=== PATIENT | female | born 1965 | race Hispanic/Latino ===

== ENCOUNTER 2017-08-31 13:19 | Outpatient (CLI) | payer OTHER ==
[2017-08-31 14:26] LABS: Hematocrit 39.7 % (36.0-47.0); Mean Platelet Volume 6.4 fL (7.4-10.4); Red Blood Cell (RBC) Count 4.15 mill/uL (4.20-5.40); White Blood Cell (WBC) Count 5.1 thou/uL (4.8-10.8)
[2017-08-31 14:46] LABS: Anion Gap 10 mmol/L (10-20); BUN (Urea Nitrogen) 11 mg/dL (9.8-20.1); Calc. Creatinine Clearance 0 mL/min (70-130); Calcium 9.2 mg/dL (7.8-10.44); Carbon Dioxide 29 mmol/L (22-29); Chloride 106 mmol/L (98-107); Estimated GFR-MDRD 86
== END 2017-08-31 13:20 | disposition home or self-care (01) ==
LOC: LABBT 13:19
PROVIDERS: ATTEND Orthopaedic Surgery
DX: Z01.812 Encounter for preprocedural laboratory examination (principal); S83.232A Complex tear of medial meniscus, current injury, left knee, initial encounter
CPT/HCPCS: 80048; 85027

== ENCOUNTER 2017-09-07 09:28 | Day surgery (SDC) | payer OTHER ==
[2017-08-31 13:23] VITALS: BMI 33.5
[2017-09-07] MEDS ORDERED: Fentanyl 250 MCG/5 ML VIAL ONE (09:54)
[2017-09-07] MEDS ORDERED: Bupivacaine/Epinephrine 0.25% 30 ML VIAL ONE (10:06)
[2017-09-07] MEDS ORDERED: Midazolam HCl 2 mg/2 ml Vial ONE (10:16)
[2017-09-07] MEDS ORDERED: CEFAZOLIN/Water 2 GM/20 ML SYRINGE ONE (10:16)
[2017-09-07] MEDS ORDERED: Fentanyl 100 MCG/2 ML VIAL ONE (11:51)
[2017-09-07] MEDS ORDERED: Morphine 4 MG/ML VIAL ONE (12:42)
[2017-09-07] MEDS ORDERED: Labetalol HCl 100 MG/20 ML VIAL ONE (12:53)
--- NOTE | 2017-09-07 13:11 | OP ---
DATE OF OPERATION: 09/07/2017 PREOPERATIVE DIAGNOSES: 1. Complex tear in the posterior horn of the medial meniscus. 2. Arthritis patellofemoral joint, left knee. POSTOPERATIVE DIAGNOSES: 1. Complex tear in the posterior horn of the medial meniscus. 2. Arthritis, patellofemoral joint, left knee. PROCEDURE: Arthroscopy of the left knee with partial medial meniscectomy, lateral retinacular releas e and shaving of the patellofemoral joint. SURGEON: Pavel Min M.D. ANESTHESIA: General. TECHNIQUE: The patient was given preoperative IV antibiotics, taken to the operating room, placed in the supine position. Satisfactory general anesthesia was performed. Left lower extremity was place d in a leg cummins and sterilely prepped and draped in the usual fashion. After exsanguination, the t ourniquet was raised to 250 mmHg. The knee was scoped, the usual inferior medial and inferolateral p ortals. Upon entering the suprapatellar pouch, the patient was noted to have some synovitis. Partia l synovectomy was performed. The patient did have arthritis in the patellofemoral joint. There was significant arthritic changes with fibrillation of the articular cartilage and thinning of the articu lar cartilage, particularly in the lateral facet. There was also wearing of the patellofemoral joint of the distal femur in the femoral groove laterally, this is secondary to over tightness in the late ral retinaculum. Therefore, a lateral retinacular release was performed using an arthrowand and a sh aver and the shaver was also used to smooth up the patellofemoral joint cartilage. The intercondylar notch revealed an intact anterior cruciate ligament. The lateral compartment had normal articular c artilage. Lateral meniscus was thoroughly inspected and probed and was free of pathology. The media l compartment had some defect in the cartilage on the medial femoral condyle, some of the articular c artilage was loose and flat and these were debrided with the shaver and there was complex tear involv ing the posterior horn into the posterior aspect of the body and a partial medial meniscectomy was pe rformed using the surface arthrowand and shaver, leaving the remaining meniscus to a contoured and st able rim. During the procedure, all the debris was irrigated out of the knee joint. The instruments were removed. The portals were closed with 3-0 Rapide. The knee joint was injected with 30 mL of 0 .25% Marcaine with epinephrine. A sterile dressing was applied. The tourniquet was released. The l eg was taken out of the leg cummins. The patient was awakened, extubated, and transferred to the [facility] very room in stable condition. ESTIMATED BLOOD LOSS: None. COMPLICATIONS: None. TOURNIQUET TIME: 29 minutes. DISCHARGE MEDICATIONS: [place] 10 one every 6 hours as needed for pain, #50.
[2017-09-07] MEDS ORDERED: HYDROcodone/Acetaminophen 5/325 mg Tablet ONE (13:15)
[2017-09-07] MEDS ORDERED: Propofol 200 MG/20 ML VIAL ONE (16:56)
[2017-09-07] MEDS ORDERED: Ondansetron HCl/PF 4 MG/2 ML Vial ONE (16:56)
[2017-09-07] MEDS ORDERED: Ketorolac Tromethamine 30 MG/ML VIAL ONE (16:56)
[2017-09-07] MEDS ORDERED: Dexamethasone 20 MG/5 ML VIAL ONE (16:56)
[2017-09-07] MEDS ORDERED: Lidocaine 1% PF 5 ML VIAL ONE (16:56)
== END 2017-09-07 14:32 | disposition home or self-care (01) ==
LOC: SDC 09:28
PROVIDERS: ATTEND Orthopaedic Surgery
PROC: 0MNP4ZZ Release Left Knee Bursa and Ligament, Percutaneous Endoscopic Approach (ICD-10-PCS; principal; 2017-09-07)
PROC: 0SBD4ZZ Excision of Left Knee Joint, Percutaneous Endoscopic Approach (ICD-10-PCS; principal; 2017-09-07)
DX: S83.232A Complex tear of medial meniscus, current injury, left knee, initial encounter (principal); M17.12 Unilateral primary osteoarthritis, left knee; Z79.1 Long term (current) use of non-steroidal anti-inflammatories (NSAID); Z79.899 Other long term (current) drug therapy
CPT/HCPCS: 96374; 96375; G8978-GP-CJ; G8979-GP-CJ; G8980-GP-CJ; J1100; J1885; J2001; J2250; J2270; J2405; J2704; J3010